=== PATIENT | female | born 1955 | race Caucasian/White ===

== ENCOUNTER → 2019-02-26 | Outpatient (CLI) | payer OTHER, MEDICARE ==
[~2019-02-26] MED LIST: SIMVASTATIN40 MG; TRIAMCINOLONE A80 G2 TOP; ZOFRAN ODT4 MG PO
== END ==
LOC: M.RAD 09:12
DX: Z12.31 Encounter for screening mammogram for malignant neoplasm of breast (principal)

== ENCOUNTER → 2020-02-05 | Outpatient (CLI) | payer MEDICARE, OTHER | LOC: M.RAD 09:20 | PROVIDERS: ATTEND Family Medicine | DX: Z12.31 Encounter for screening mammogram for malignant neoplasm of breast (principal) ==

== ENCOUNTER → 2021-02-12 | Outpatient (CLI) | payer MEDICARE, OTHER | LOC: M.RAD 08:01 | PROVIDERS: ATTEND Family Medicine | DX: Z12.31 Encounter for screening mammogram for malignant neoplasm of breast (principal) ==